=== PATIENT | female | born 1960 | race Hispanic/Latino ===

== ENCOUNTER 2019-12-24 17:59 | Emergency (ER) | payer SELFPAY ==
[~2019-12-24] VITALS: Ht 154.9 cm; Wt 88.5 kg
--- NOTE | 2019-12-24 18:04 | Emergency Department Note ---
History of Present Illnes History of Present Illness History of Present Illness This is a 59 year old female . 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 Onset (how long ago): day(s) (3 days of constant left neck pain going to shoulder and yesterday 2 hours of cp) Radiation: Reports other (left shoulder) Severity: mild Onset quality: gradual Duration (how long): day(s) (3) Timing of current episode: constant Progression: unchanged Chronicity: new Context: Denies recent illness, Denies recent surgery, Denies recent immobilization, Denies recent travel, Denies trauma/injury, Denies new medicat ions, Denies hx of DVT/PE, Denies non-compliance w/ medications, Denies other Relieving factors: none Exacerbating factors: none Associated symptoms: Reports denies other symptoms, Reports chest pain (yesterday non exertional lasted 2 hours stress test 3 yearsa go) Treatments prior to arrival: none Risk factors: HTN, No CAD, no fam hx of CAD Past Medical/Family History Physician Review I have reviewed the patient's past medical and family history. Any updates have been documented here. Past Medical History Recent Fever: No Clinical Suspicion of Infectio: No New/Unexplained Change in Ment: No Past Medical History: Hypertension Past Surgical History: Cholecysctectomy, , Hernia Repair Social History Smoking Cessation: Former smoker Alcohol Use: Occasional Any Illegal Drug Use: No Family History Family history of heart diseas: No Review of Systems Review of Systems Constitutional: Reports no symptoms EENTM: Reports no symptoms Cardiovascular: Reports chest pain; Denies palpitations, Denies syncope Respiratory: Reports no symptoms Review of other systems: All other systems negative Physical Exam Related Data Allergies: Coded Allergies: iodine (Verified Allergy, Unknown, 12/24/19) morphine (Verified Allergy, Unknown, 12/24/19) Vital signs reviewed: Yes Physical Exam CONSTITUTIONAL Constitutional: Present well-developed, Present obese HENT HENT: Present normocephalic EYES Eyes: Reports conjunctivae normal NECK Neck: Present supple PULMONARY Pulmonary: Present breath sounds normal CARDIOVASCULAR Cardiovascular: Present regular rhythm GASTROINTESTINAL Abdominal: Present soft, Present nontender GENITOURINARY SKIN Skin: Present warm MUSCULOSKELETAL Musculoskeletal: Present ROM normal NEUROLOGICAL Neurological: Present alert, Present oriented x 3 PSYCHOLOGICAL Psychological: Present mood/affect normal Results Laboratory Lab results reviewed: Yes Laboratory comments CBC WBC 10.1 CMP Normal Trop Normal Repeat 2 hour Trop Normal Imaging Imaging results reviewed: Yes Impressions Procedure: [id number] HOPD/CXR 2 VIEW - HOPD Exam Date: 12/24/19 Exam Time: 1837 REPORT STATUS: Signed EXAMINATION: CXR 2 VIEW - HOPD INDICATION: ^chest pain ^[id number] ^1837 COMPARISON: None FINDINGS: TUBES and LINES: None. LUNGS: Lungs are well inflated. Lungs are clear. There is no evidence of pneumonia or pulmonary edema. PLEURA: No pleural effusion or pneumothorax. HEART AND MEDIASTINUM: The cardiomediastinal silhouette is unremarkable. BONES AND SOFT TISSUES: No acute osseous lesion. Soft tissues are unremarkable. UPPER ABDOMEN: No free air under the diaphragm. IMPRESSION: No acute thoracic radiographic abnormality. Signed by: Satinder Orta MD on 12/24/2019 6:40 PM Dictated By: SATINDER ORTA MD 39 Transcribed By: EFREN on 12/24/191839 Procedures 12 Lead ECG Interpretation ECG Interpretation : ECG: ECG 1 Jogger Operator: Interpreted by ED physician Date: Dec 24, 2019 Prior ECG tracings: not available for review Rhythm: sinus rhythm Ectopy: PVC's Rate: normal QRS axis: normal ST segments normal: Yes T wave inversion: V3, V4, V5, V6 Clinical Impression: abnormal ECG Assessment & Plan Medical Decision Making MDM CAD, MSK, Radiculopathy Reassessment Reassessment Pt has had the same pain for days constant no tearing no weakness or numbness has 2 sets of enzymes that are negative she has no hx of DVT or PE no recent travel no leg pain or swelling. Pt is going to need an echo and a stress she has a Doctor at [place] and will follow up this is unlikely ACS because of the timing Assessment & Plan Final Impression: (1) Neck pain (2) Chest pain (3) Abnormal EKG Home Meds Active Scripts Cyclobenzaprine Hcl (FLEXERIL) 5 Mg Tablet, 10 MG PO TID for 5 Days, #15 Prov:VICTOR HUGO GAMEZ MD 12/24/19 Naproxen (NAPROSYN) 500 Mg Tablet, 500 MG PO BID for 7 Days, #15 TAB Prov:VICTOR HUGO GAMEZ MD 12/24/19 VICTOR HUGO GAMEZ MD Dec 24, 2019 18:04
[2019-12-24] MEDS ORDERED: ASPIRIN 81 MG CHEW TAB PO ONE (18:15)
[2019-12-24] MEDS ORDERED: ASPIRIN 81 MG CHEW TAB ONE (18:24)
--- NOTE | 2019-12-24 18:43 | Diagnostic Imaging Report ---
EXAMINATION: CXR 2 VIEW - HOPD INDICATION: ^chest pain ^[id number] ^1838 COMPARISON: None FINDINGS: TUBES and LINES: None. LUNGS: Lungs are well inflated. Lungs are clear. There is no evidence of pneumonia or pulmonary edema. PLEURA: No pleural effusion or pneumothorax. HEART AND MEDIASTINUM: The cardiomediastinal silhouette is unremarkable. BONES AND SOFT TISSUES: No acute osseous lesion. Soft tissues are unremarkable. UPPER ABDOMEN: No free air under the diaphragm. IMPRESSION: No acute thoracic radiographic abnormality. Signed by: Hugo Silva MD on 12/24/2019 6:40 PM
[2019-12-24] MEDS ORDERED: CYCLOBENZAPRINE5 MG PO (19:03)
[2019-12-24] MEDS ORDERED: NAPROSYN500 MG PO (19:03)
[2019-12-24 20:30] VITALS: BP 141/79
== END 2019-12-24 20:30 | disposition home or self-care (01) ==
LOC: FSED 17:59
DX: M54.2 Cervicalgia (principal); R07.9 Chest pain, unspecified; R94.31 Abnormal electrocardiogram [ECG] [EKG]; I10 Essential (primary) hypertension; E66.9 Obesity, unspecified
CPT/HCPCS: 71046; 80053; 82553; 84484; 85025; 93005; 99284